=== PATIENT | male | born 2000 | race African-American/Black ===

== ENCOUNTER 2022-04-26 09:11 | Emergency (ER) | payer MEDICAID, OTHER ==
[~2022-04-26] VITALS: Ht 167.6 cm; Wt 72.0 kg
[~2022-04-26 09:11] MED LIST: NONE REPORTED
[2022-04-26 09:13] VITALS: BP 128/81
== END 2022-04-26 14:36 | disposition left against medical advice (07) ==
LOC: ER 09:11
DX: Z53.21 Procedure and treatment not carried out due to patient leaving prior to being seen by health care provider (principal)